=== PATIENT | female | born 1995 | race African-American/Black ===

== ENCOUNTER → 2023-05-02 | Emergency (ER) | payer OTHER ==
[2023-05-02 09:08] LABS: SARS-CoV-2 Antigen CONTROL BLUE LINE VIS/BG OK; SARS-CoV-2 Antigen Rapid Res Negative (Negative)
--- NOTE | 2023-05-02 10:27 | RAD REPORT ---
EXAM DESCRIPTION: Emmanuel Single View05/02/2023 9:17 am CLINICAL HISTORY: Cough COMPARISON: 2015 FINDINGS: The lungs appear clear of acute infiltrate. The heart is normal size IMPRESSION: No acute abnormalities displayed
--- NOTE | 2023-05-02 10:35 | ER ---
Nurse's Notes [facility] Name: Anna Brice Age: 28 yrs Sex: Female : 1995 Arrival Date: 05/02/2023 Time: 08:23 Bed 13 Private MD: Diagnosis: Acute upper respiratory infection, unspecified;Viral syndrome Presentation: 05/01 08:28 Chief complaint: Patient states: COUGH, CONGESTION, AND RUNNY NOSE FOR APPROXIMATELY 3 db DAYS. DENIES FEVER. STATES HAS DENTAL PAIN ON RIGHT TOOTH WITH RIGHT SIDE PAIN FOR A WHILE. Coronavirus screen: Client denies travel out of the [place] in the last 14 days. At this time, the client does not indicate any symptoms associated with coronavirus-19. Ebola Screen: Patient negative for fever greater than or equal to 101.5 degrees Fahrenheit, and additional compatible Ebola Virus Disease symptoms Patient denies exposure to infectious person. Patient denies travel to an Ebola-affected area in the 21 days before illness onset. No symptoms or risks identified at this time. Initial Sepsis Screen: Does the patient meet any 2 criteria? No. Patient's initial sepsis screen is negative. Does the patient have a suspected source of infection? No. Patient's initial sepsis screen is negative. Risk Assessment: Do you want to hurt yourself or someone else? Patient reports no desire to harm self or others. Onset of symptoms was April 30, 2023. 08:28 Method Of Arrival: Ambulatory db 08:28 Acuity: NATACHA 4 db Triage Assessment: 08:40 General: Appears in no apparent distress. comfortable, Behavior is calm, cooperative. db Pain: Complains of pain in face. Neuro: Level of Consciousness is awake, alert, obeys commands, Oriented to person, place, time, situation, Moves all extremities. Speech is normal. Cardiovascular: No deficits noted. Respiratory: Airway is patent Respiratory effort is even, unlabored, Respiratory pattern is regular, symmetrical, Breath sounds are clear bilaterally. GI: No deficits noted. No signs and/or symptoms were reported involving the gastrointestinal system. : No deficits noted. No signs and/or symptoms were reported regarding the genitourinary system. Derm: No deficits noted. No signs and/or symptoms reported regarding the dermatologic system. Musculoskeletal: No deficits noted. No signs and/or symptoms reported regarding the musculoskeletal system. Historical: - Allergies: 08:40 No Known Allergies; db - Home Meds: 08:40 None [Active]; db - PMHx: 08:40 Anemia; db - PSHx: 08:40 BILATERAL BREATST REDUCTION; db - Immunization history:: Adult Immunizations unknown. - Social history:: Smoking status: Patient denies any tobacco usage or history of. - Family history:: not pertinent. - Hospitalizations: : No recent hospitalization is reported. Screenin:42 [facility] ED Fall Risk Assessment (Adult) History of falling in the last 3 months, db including since admission No falls in past 3 months (0 pts) Confusion or Disorientation No (0 pts) Intoxicated or Sedated No (0 pts) Impaired Gait No (0 pts) Mobility Assist Device Used No (0 pt) Altered Elimination No (0 pt) Score/Fall Risk Level 0 - 2 = Low Risk Oriented to surroundings, Maintained a safe environment. Abuse screen: Denies threats or abuse. Denies injuries from another. Nutritional screening: No deficits noted. Tuberculosis screening: No symptoms or risk factors identified. Assessment: 08:42 Reassessment: SEE TRIAGE FOR INITIAL ASSESSMENT BY ME. db 08:48 Reassessment: Patient appears in no apparent distress at this time. Patient and/or db family updated on plan of care and expected duration. Pain level reassessed. Patient is alert, oriented x 3, equal unlabored respirations, skin warm/dry/pink. General: Appears in no apparent distress. comfortable, Behavior is calm, cooperative. EENT: Reports nasal congestion nasal discharge that is watery. 08:59 Reassessment: Patient appears in no apparent distress at this time. No changes from ko1 previously documented assessment. Patient and/or family updated on plan of care and expected duration. Pain level reassessed. Patient is alert, oriented x 3, equal unlabored respirations, skin warm/dry/pink. Vital Signs: 08:28 BP 139 / 89; Pulse 78; Resp 16; Temp 98.8(O); Pulse Ox 99% on R/A; Weight 116.57 kg; db Height 5 ft. 6 in. ; Pain 8/10; 08:59 BP 125 / 74; Pulse 75; Resp 15; Pulse Ox 99% on R/A; ko1 10:50 BP 110 / 55; Pulse 75; Resp 15; Pulse Ox 99% ; ko1 08:28 Body Mass Index 41.48 (116.57 kg, 167.64 cm) db 08:28 Pain Scale: Adult db Srinivas Coma Score: 08:48 Eye Response: spontaneous(4). Motor Response: obeys commands(6). Verbal Response: db oriented(5). Total: 15. ED Course: 08:27 Patient arrived in ED. rg4 08:28 Omar Stephenson MD is Attending Physician. rn 08:37 Zoë Tafoya, RN is Primary Nurse. db 08:40 Triage completed. db 08:40 Arm band placed on Patient placed in an exam room. EKG completed in triage. Results db shown to MD. 08:42 Patient has correct armband on for positive identification. Bed in low position. Call db light in reach. Side rails up X 1. Provided Education on: LABS AND XRAY. Pulse ox on. NIBP on. 08:48 Strep Sent. db 08:48 Flu Sent. db 08:48 SARS RAPID Sent. db 08:59 Primary Nurse role handed off by Zoë Tafoya RN ko1 08:59 Sandy Stephens, RN is Primary Nurse. ko1 08:59 No provider procedures requiring assistance completed. ko1 09:19 XRAY Chest (1 view) In Process Unspecified. EDMS 10:50 Patient did not have IV access during this emergency room visit. ko1 Administered Medications: No medications were administered Medication: 08:42 VIS not applicable for this client. db Outcome: 10:34 Discharge ordered by . rn 10:50 Discharged to home ambulatory, with family, ko1 10:50 Condition: stable 10:50 Discharge instructions given to patient, family, Instructed on discharge instructions, follow up and referral plans. Demonstrated understanding of instructions, follow-up care, 11:05 Patient left the ED. ko1 Signatures: Dispatcher [employer] EDMS Omar Stephenson MD MD rn Garcia, Rubi rg4 Sandy Stephens, RN RN ko1 Zoë Tafoya RN RN db Corrections: (The following items were deleted from the chart) 08:41 08:40 PSHx: None; db db
--- NOTE | 2023-05-02 10:35 | EDPHYS ---
Physician Documentation [facility] Name: Anna Brice Age: 28 yrs Sex: Female : 1995 Arrival Date: 05/02/2023 Time: 08:23 Bed 13 Private MD: ED Physician Omar Stephenson HPI: 05/01 08:50 This 28 yrs old Black Female presents to ER via Ambulatory with complaints of Flu rn Symptoms. 08:50 The patient or guardian reports cough, flu symptoms. Onset: The symptoms/episode rn began/occurred 2 day(s) ago. Severity of symptoms: At their worst the symptoms were mild, in the emergency department the symptoms are unchanged. Modifying factors: The symptoms are alleviated by nothing, the symptoms are aggravated by nothing. Associated signs and symptoms: Pertinent positives: fever, rhinorrhea, sore throat, Pertinent negatives: diarrhea. The patient has not experienced similar symptoms in the past. Patient reports feeling sick for the last 2 days. Reports subjective fever and chills, generalized malaise, cough and runny nose. Patient also reports posttussive emesis. No abdominal pain. No diarrhea. Significant other also with runny nose. Denies shortness of breath. No chronic medical problems. Reports chest pain but only with cough.. Historical: - Allergies: 08:40 No Known Allergies; db - Home Meds: 08:40 None [Active]; db - PMHx: 08:40 Anemia; db - PSHx: 08:40 BILATERAL BREATST REDUCTION; db - Immunization history:: Adult Immunizations unknown. - Social history:: Smoking status: Patient denies any tobacco usage or history of. - Family history:: not pertinent. - Hospitalizations: : No recent hospitalization is reported. ROS: 08:50 Constitutional: Negative for fever, chills, and weight loss, ENT: Positive for rn congestion and sore throat Neck: Negative for injury, pain, and swelling, Cardiovascular: Negative for chest pain, palpitations, and edema, Respiratory: Positive for cough Abdomen/GI: Negative for abdominal pain, diarrhea, and constipation, Back: Negative for injury and pain, : Negative for injury, bleeding, discharge, and swelling, MS/Extremity: Negative for injury and deformity, Skin: Negative for injury, rash, and discoloration, Neuro: Positive for headache and generalized malaise Exam: 08:52 Constitutional: This is a well developed, well nourished patient who is awake, alert, rn and in no acute distress. Ambulatory to room without difficulty or assistance Head/Face: Normocephalic, atraumatic. ENT: Pharynx with erythema, no swelling Neck: Trachea midline, no masses palpated, and no cervical lymphadenopathy. Supple, full range of motion without nuchal rigidity, or vertebral point tenderness. No Meningismus. Cardiovascular: Regular rate and rhythm. No pulse deficits. Respiratory: No increased work of breathing, no retractions or nasal flaring. Abdomen/GI: Soft, non-tender MS/ Extremity: Pulses equal, no cyanosis. Neuro: Awake and alert, GCS 15 Vital Signs: 08:28 BP 139 / 89; Pulse 78; Resp 16; Temp 98.8(O); Pulse Ox 99% on R/A; Weight 116.57 kg; db Height 5 ft. 6 in. ; Pain 8/10; 08:59 BP 125 / 74; Pulse 75; Resp 15; Pulse Ox 99% on R/A; ko1 10:50 BP 110 / 55; Pulse 75; Resp 15; Pulse Ox 99% ; ko1 08:28 Body Mass Index 41.48 (116.57 kg, 167.64 cm) db 08:28 Pain Scale: Adult db Srinivas Coma Score: 08:48 Eye Response: spontaneous(4). Motor Response: obeys commands(6). Verbal Response: db oriented(5). Total: 15. MDM: 08:28 Patient medically screened. rn 10:32 Differential Diagnosis: Bronchitis Influenza Upper Respiratory Infection Sinusitis rn Pharyngitis Viral Syndrome Pneumonia. Data reviewed: vital signs, nurses notes, lab test result(s), radiologic studies, plain films, and as a result, I will discharge patient. Counseling: I had a detailed discussion with the patient and/or guardian regarding the historical points, exam findings, and any diagnostic results supporting the discharge/admit diagnosis, lab results, radiology results, the need for outpatient follow up, to return to the emergency department if symptoms worsen or persist or if there are any questions or concerns that arise at home. Special discussion: I discussed with the patient/guardian in detail that at this point there is no indication for admission to the hospital. It is understood, however, that if the symptoms persist or worsen the patient needs to return immediately for re-evaluation. ED course: Patient with negative testing for COVID/flu/strep. Chest x-ray clear. No oxygen requirement. Most likely viral illness given constellation of symptoms and significant other also with symptoms. Had discussion with patient regarding antibiotics and viral infections, will discharge home with [id number] cold medication and return precautions.. 05/01 08:36 Order name: Strep rn 05/01 08:36 Order name: SARS RAPID; Complete Time: 10:23 rn 05/01 08:36 Order name: Flu; Complete Time: 10: rn 05/01 09:12 Order name: Throat Culture EDUT 05/01 08:36 Order name: XRAY Chest (1 view); Complete Time: 10:29 rn Administered Medications: No medications were administered Disposition Summary: 05/02/23 10:34 Discharge Ordered Notes: Location: Home rn Problem: new rn Symptoms: have improved rn Condition: Stable rn Diagnosis - Acute upper respiratory infection, unspecified rn - Viral syndrome rn Followup: rn - With: Private Physician - When: As needed - Reason: Recheck today's complaints, Re-evaluation by your physician Discharge Instructions: - Discharge Summary Sheet rn - Upper Respiratory Infection, Adult rn - Viral Respiratory Infection rn Forms: - Medication Reconciliation Form rn - Thank You Letter rn - Antibiotic airborne operations manager - Prescription Opioid Use rn - Patient Portal Instructions rn - Leadership Thank You Letter rn Signatures: Dispatcher [employer] Omar Valentino MD MD rn Benton, Danielle, RN RN db Corrections: (The following items were deleted from the chart) 08:41 08:40 PSHx: None; db db 08:51 08:50 Patient reports feeling sick for the last 2 days. Reports subjective fever and rn chills, generalized malaise, cough and runny nose. Patient also reports posttussive emesis. No abdominal pain. No diarrhea. Significant other also with runny nose. Denies shortness of breath. No chronic medical problems.. rn
[2023-05-02 11:32] VITALS: BP 110/55; TEMP 98.8; O2SAT 99
== END ==
LOC: ER 08:23
DX: J06.9 Acute upper respiratory infection, unspecified (principal); B34.9 Viral infection, unspecified; Z11.52 Encounter for screening for COVID-19
CPT/HCPCS: 36415; 71045; 87070; 87081; 87804; 87811; 99284

== ENCOUNTER 2023-05-26 11:08 | Emergency (ER) | payer OTHER ==
[2023-05-26] MEDS ORDERED: HYDROCODONE/APAP 10/325 TAB ONE (11:25)
--- NOTE | 2023-05-26 11:27 | ER ---
Nurse's Notes [facility] Name: Anna Brice Age: 28 yrs Sex: Female : 1995 Arrival Date: 05/26/2023 Time: 11:08 Bed IW2 Private MD: Diagnosis: Cellulitis of face Presentation: 05/25 11:16 Chief complaint: Patient states: Upper lip pain and swelling since last night. Had ll1 tooth pain, and used OTC medicine on the gums for pain last night. Coronavirus screen: Client denies travel out of the [place] in the last 14 days. At this time, the client does not indicate any symptoms associated with coronavirus-19. Ebola Screen: Patient denies travel to an Ebola-affected area in the 21 days before illness onset. Initial Sepsis Screen: Does the patient meet any 2 criteria? No. Patient's initial sepsis screen is negative. Does the patient have a suspected source of infection? No. Patient's initial sepsis screen is negative. Risk Assessment: Do you want to hurt yourself or someone else? Patient reports no desire to harm self or others. Onset of symptoms was May 25, 2023. 11:16 Method Of Arrival: Ambulatory ll1 11:16 Acuity: NATACHA 4 ll1 Triage Assessment: 11:20 General: Appears uncomfortable, Behavior is calm, cooperative, appropriate for age. ll1 Pain: Complains of pain in upper mouth. EENT: Reports pain in front tooth swelling upper lip. 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 - Infectious Disease History:: Denies. - Social history:: Smoking status: Reported history of juuling and/or vaping. Patient denies any tobacco usage or history of. - Family history:: not pertinent. - Hospitalizations: : No recent hospitalization is reported. Screenin:[address] [facility] ED Fall Risk Assessment (Adult) History of falling in the last 3 months, ll1 including since admission No falls in past 3 months (0 pts) Confusion or Disorientation No (0 pts) Intoxicated or Sedated No (0 pts) Impaired Gait No (0 pts) Mobility Assist Device Used No (0 pt) Altered Elimination No (0 pt) Score/Fall Risk Level 0 - 2 = Low Risk Maintained a safe environment, Hourly rounding (assess needs \T\ fall precautionary measures) done. Abuse screen: Denies threats or abuse. Nutritional screening: No deficits noted. Tuberculosis screening: No symptoms or risk factors identified. Assessment: 11:31 Reassessment: No changes from previously documented assessment. Patient and/or family ll1 updated on plan of care and expected duration. Pain level reassessed. Patient is alert, oriented x 3, equal unlabored respirations, skin warm/dry/pink. Vital Signs: 11:16 BP 135 / 93; Pulse 103; Resp 17; Temp 97.5; Pulse Ox 98% ; Weight 115.67 kg; Height 5 ll1 ft. 6 in. ; Pain 10/10; 11:16 Body Mass Index 41.16 (115.67 kg, 167.64 cm) 1 11:16 Pain Scale: Adult [facility] ED Course: 11:10 Patient arrived in ED. mr 11:12 Omar Stephenson MD is Attending Physician. rn 11:14 Arm band placed on. 1 11:20 Triage completed. 1 11:31 Patient has correct armband on for positive identification. Call light in reach. ll1 Provided Education on: No drinking alcohol or driving on prescribed pain medications. . 11:31 No provider procedures requiring assistance completed. Patient did not have IV access ll1 during this emergency room visit. Administered Medications: 11:30 Drug: Clindamycin PO 300 mg PO once Route: PO; 1 11:31 Follow up: Response: No adverse reaction 1 11:30 Drug: [place] PO 10 mg-325 mg 1 tabs PO once Route: PO; ll1 11:31 Follow up: Response: No adverse reaction 1 Medication: 11:31 VIS not applicable for this client. ll1 Outcome: 11: Discharge ordered by . rn 11:31 Patient left the ED. ll1 11:31 Discharged to home ambulatory, ll1 11:31 Condition: stable 11:31 Discharge instructions given to patient, family, Instructed on discharge instructions, follow up and referral plans. no driving heavy equipment, medication usage, Demonstrated understanding of instructions, follow-up care, medications, Prescriptions given X 2, Signatures: Cote, Sharla, Reg Reg mr Omar Stephenson MD MD rn Mike Mendez RN RN ll1 Corrections: (The following items were deleted from the chart) 11:20 11:16 Social history: Smoking status: Patient denies any tobacco usage or history of. ll1 ll1 11:21 11:16 Pulse 107bpm; Resp 17bpm; Pulse Ox 98%; 115.67 kg; Height 5 ft. 6 in.; BMI: 41.1; ll1 Pain 11/19, Adult; ll1
--- NOTE | 2023-05-26 11:27 | EDPHYS ---
Physician Documentation [facility] Name: Anna Brice Age: 28 yrs Sex: Female : 1995 Arrival Date: 05/26/2023 Time: 11:08 Bed IW2 Private MD: ED Physician Omar Stephenson HPI: 05/25 11:21 This 28 yrs old Black Female presents to ER via Ambulatory with complaints of Lips rn Swelling. 11:21 The patient presents with pain, swelling. Onset: The symptoms/episode began/occurred rn yesterday. Modifying factors: The symptoms are alleviated by nothing, the symptoms are aggravated by nothing. Severity of symptoms: At their worst the symptoms were mild, in the emergency department the symptoms are unchanged. The patient has not experienced similar symptoms in the past. Patient reports dental pain and upper lip swelling and pain. NO fever. NO trauma. No new meds. No previous allergic reaction. . 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 - Infectious Disease History:: Denies. - Social history:: Smoking status: Reported history of juuling and/or vaping. Patient denies any tobacco usage or history of. - Family history:: not pertinent. - Hospitalizations: : No recent hospitalization is reported. ROS: 11:21 Constitutional: Negative for fever, chills, and weight loss, ENT: Positive for upper rn lip injury and pain Cardiovascular: Negative for chest pain, palpitations, and edema, Respiratory: Negative for shortness of breath, cough, wheezing, and pleuritic chest pain, Abdomen/GI: Negative for abdominal pain, nausea, vomiting, diarrhea, and constipation, Skin: Negative for injury, rash, and discoloration, Neuro: Negative for headache, weakness, numbness, tingling, and seizure, Exam: 11:21 Constitutional: This is a well developed, well nourished patient who is awake, alert, rn and in no acute distress. Eyes: Periorbital areas with no swelling, redness, or edema. ENT: Poor dentition. Gingival swelling above upper front 2 teeth. No definitive abscess but upper lip with induration. No abscess or fluctuance. No open wounds or drainage. Respiratory: Speaking full sentences, unlabored. Skin: No urticaria or signs of allergic reaction Vital Signs: 11:16 BP 135 / 93; Pulse 103; Resp 17; Temp 97.5; Pulse Ox 98% ; Weight 115.67 kg; Height 5 ll1 ft. 6 in. ; Pain 10/10; 11:16 Body Mass Index 41.16 (115.67 kg, 167.64 cm) ll1 11:16 Pain Scale: Adult ll1 MDM: 11:13 Patient medically screened. rn 11:21 Differential diagnosis: dental caries, dental abscess. Data reviewed: vital signs, rn nurses notes, and as a result, I will discharge patient. Counseling: I had a detailed discussion with the patient and/or guardian regarding the historical points, exam findings, and any diagnostic results supporting the discharge/admit diagnosis, the need for outpatient follow up, to return to the emergency department if symptoms worsen or persist or if there are any questions or concerns that arise at home. Special discussion: I discussed with the patient/guardian in detail that at this point there is no indication for admission to the hospital. It is understood, however, that if the symptoms persist or worsen the patient needs to return immediately for re-evaluation. Based on the history and exam findings, there is no indication for further emergent testing or inpatient evaluation. I discussed with the patient/guardian the need to see a dentist for further evaluation of the symptoms. 11:21 ED course: Most likely early infection but has originated from the tooth. Is likely rn extended to soft tissue. Will place on antibiotics and pain medication. 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 Administered Medications: 11:30 Drug: Clindamycin PO 300 mg PO once Route: PO; ll1 11:31 Follow up: Response: No adverse reaction ll1 11:30 Drug: [place] PO 10 mg-325 mg 1 tabs PO once Route: PO; ll1 11:31 Follow up: Response: No adverse reaction ll1 Disposition Summary: 05/26/23 11:26 Discharge Ordered Notes: Location: Home rn Problem: new rn Symptoms: are unchanged rn Condition: Stable rn Diagnosis - Cellulitis of face rn Followup: rn - With: Private Physician - When: As needed - Reason: Recheck today's complaints, Re-evaluation by your physician Discharge Instructions: - Cellulitis, Adult rn - Discharge Summary Sheet 1 Forms: - Medication Reconciliation Form rn - Thank You Letter rn - Antibiotic t rail turner - Prescription Opioid Use rn - Patient Portal Instructions rn - Leadership Thank You Letter rn - Work release form ll1 Prescriptions: - Clindamycin HCl 300 mg Oral Capsule - take 1 capsule ORAL route every 6 hours for 10 days; 40 capsule; Refills: 0, rn Product Selection Permitted - Tramadol 50 mg Oral Tablet - take 1 tablet ORAL route every 8 hours as needed; 12 tablet; Refills: 0, rn Product Selection Permitted Signatures: Omar Stephenson MD MD rn Lewis, Lynsay, RN RN 1 Corrections: (The following items were deleted from the chart) 11:20 11:16 Social history: Smoking status: Patient denies any tobacco usage or history of. ll1 ll1
[2023-05-26 11:57] VITALS: BP 135/93; TEMP 97.5; O2SAT 98
== END 2023-05-26 11:31 | disposition home or self-care (01) ==
LOC: ER 11:08
DX: L03.211 Cellulitis of face (principal)
CPT/HCPCS: 99283

== ENCOUNTER 2023-06-12 08:58 | Emergency (ER) | payer OTHER ==
--- NOTE | 2023-06-12 10:25 | EDPHYS ---
Physician Documentation [facility] Name: Anna Brice Age: 28 yrs Sex: Female : 1995 Arrival Date: 06/12/2023 Time: 08:58 Bed 19 Private MD: ED Physician Luz Gross HPI: 06/11 09:12 This 28 yrs old Black Female presents to ER via Unassigned with complaints of Flu sd2 Symptoms. 09:12 28-year-old female presents with chief complaint of flulike symptoms. She reports she sd2 started 3 days ago with cough, congestion and sore throat. She denies any associated fevers, vomiting or diarrhea. She reports she was exposed to her grandmother who tested positive for COVID 2 days ago.. Historical: - Allergies: 09:28 No Known Allergies; aa5 - PMHx: 09:28 Anemia; aa5 - PSHx: 09:28 BILATERAL BREATST REDUCTION; aa5 - Immunization history:: Client reports receiving the 2nd dose of the Covid vaccine. - Infectious Disease History:: Denies. - Social history:: Smoking status: Reported history of juuling and/or vaping. ROS: 09:12 Constitutional: Negative for fever, chills, and weight loss, Eyes: Negative for injury, sd2 pain, redness, and discharge, ENT: Negative for injury, and discharge, positive for sore throat Cardiovascular: Negative for chest pain, palpitations, and edema, Respiratory: Negative for shortness of breath, cough, wheezing. Abdomen/GI: Negative for abdominal pain, nausea, vomiting, diarrhea. MS/Extremity: Negative for injury and deformity, Skin: Negative for injury, rash, and discoloration, Neuro: Negative for headache, numbness and tingling. Exam: 09:12 Constitutional: This is a well developed, well nourished patient who is awake, alert, sd2 and in no acute distress. Head/Face: Normocephalic, atraumatic. Eyes: EOMI, normal conjunctiva bilaterally ENT: Nares patent. No nasal discharge, no septal abnormalities noted. Oropharynx with no redness, swelling, or masses, exudates, or evidence of obstruction, uvula midline. Mucous membranes moist. Chest/axilla: Normal chest wall appearance and motion. Nontender with no deformity. Cardiovascular: Regular rate and rhythm with a normal S1 and S2. No gallops, murmurs, or rubs. 2+ distal pulses. Respiratory: Lungs have equal breath sounds bilaterally, clear to auscultation and percussion. No rales, rhonchi or wheezes noted. No increased work of breathing, no retractions or nasal flaring. Abdomen/GI: Soft, non-tender, with normal bowel sounds. No guarding or rebound. No evidence of tenderness throughout. Skin: Warm, dry with normal turgor. Normal color with no rashes, no lesions, and no evidence of cellulitis. MS/ Extremity: Pulses equal, no cyanosis. Neurovascular intact. Full, normal range of motion. Psych: Awake, alert, with orientation to person, place and time. Behavior, mood, and affect are within normal limits. Vital Signs: 09:15 BP 119 / 83; Pulse 88; Resp 17; Temp 98.5(O); Pulse Ox 100% ; Weight 113.4 kg; Height 5 nj1 ft. 6 in. ; 10:31 BP 124 / 80; Pulse 80; Resp 17; Temp 96.8(TE); Pulse Ox 100% on R/A; nj1 09:15 Body Mass Index 40.35 (113.40 kg, 167.64 cm) [facility] MDM: 09:01 Patient medically screened. rn 09:12 Differential Diagnosis Differential diagnosis includes but is not limited to: Viral sd2 URI, acute otitis media, acute otitis externa, pneumonia, UTI, COVID, flu, herpangina among others. Data reviewed: vital signs, nurses notes. Historians other than the Patient: Spouse/Significant Other: at bedside. Counseling: I had a detailed discussion with the patient and/or guardian regarding the historical points, exam findings, and any diagnostic results supporting the discharge/admit diagnosis, lab results, the need for outpatient follow up, to return to the emergency department if symptoms worsen or persist or if there are any questions or concerns that arise at home. 10:22 ED course: Labs reviewed. Viral testing negative. Pt advised of all results and sd2 continued supportive care as well as need for outpatient follow up. Pt verbalizes understanding of discharge plan and strict return precautions. . 06/11 09:11 Order name: COVID-19 SARS RT PCR; Complete Time: 10:22 sd2 06/11 09:11 Order name: Flu; Complete Time: 10:22 sd2 Administered Medications: No medications were administered Disposition Summary: 06/12/23 10:24 Discharge Ordered Problem: new sd2 Symptoms: are unchanged sd2 Condition: Stable sd2 Diagnosis - Acute upper respiratory infection, unspecified sd2 - Contact with and (suspected) exposure to other communicable diseases sd2 Followup: sd2 - With: Private Physician - When: 2 - 3 days - Reason: Recheck today's complaints, Continuance of care, Re-evaluation by your physician Discharge Instructions: - Discharge Summary Sheet sd2 - Upper Respiratory Infection, Adult sd2 - Viral Respiratory Infection sd2 Forms: - Medication Reconciliation Form sd2 - Antibiotic Education sd2 - Prescription Opioid Use sd2 - Patient Portal Instructions sd2 - Leadership Thank You Letter sd2 Signatures: Dispatcher [employer] EDME Omar Stephenson MD MD rn Calderon, Audri RN RN aa5 Luz Gross MD MD sd2 Liv Mills RN RN nj1 Corrections: (The following items were deleted from the chart) 09:11 09:11 SARS-COV-2 RT PCR+[id number].[email or web address].[email or web address] ordered. EDME EDMS 09:11 09:11 Influenza Screen (A \T\ B)+BA.LAB.BRZ ordered. [facility] EDMS 09:34 09:28 Immunization history: Client reports receiving the 2nd dose of the Covid vaccine, [place] [id number] :34 09:28 Infectious Disease History: Denies. [facility]34 09:28 Social history: Smoking status: Reported history of juuling and/or vaping. 5 [facility]
--- NOTE | 2023-06-12 10:25 | ER ---
Nurse's Notes [facility] Name: Anna Brice Age: 28 yrs Sex: Female : 1995 Arrival Date: 06/12/2023 Time: 08:58 Bed 19 Private MD: Diagnosis: Acute upper respiratory infection, unspecified;Contact with and (suspected) exposure to other communicable diseases Presentation: 06/11 09:15 Chief complaint: Patient states: Fatigued, cough, sore throat and runny nose for the [facility] past 3 days. Coronavirus screen: Vaccine status: Patient reports receiving the 2nd dose of the covid vaccine. Ebola Screen: Patient denies travel to an Ebola-affected area in the 21 days before illness onset. Initial Sepsis Screen: Does the patient meet any 2 criteria? No. Patient's initial sepsis screen is negative. Does the patient have a suspected source of infection? No. Patient's initial sepsis screen is negative. Risk Assessment: Do you want to hurt yourself or someone else? Patient reports no desire to harm self or others. Onset of symptoms was June 04, 2023. 09:15 Method Of Arrival: Ambulatory [facility] 09:15 Acuity: NATACHA 4 [facility] Triage Assessment: 09:15 Pain: Denies pain. [facility] Historical: - Allergies: 09:28 No Known Allergies; aa5 - PMHx: 09:28 Anemia; aa5 - PSHx: 09:28 BILATERAL BREATST REDUCTION; aa5 - Immunization history:: Client reports receiving the 2nd dose of the Covid vaccine. - Infectious Disease History:: Denies. - Social history:: Smoking status: Reported history of juuling and/or vaping. Screenin:31 [facility] ED Fall Risk Assessment (Adult) History of falling in the last 3 months, aa5 including since admission No falls in past 3 months (0 pts) Confusion or Disorientation No (0 pts) Intoxicated or Sedated No (0 pts) Impaired Gait No (0 pts) Mobility Assist Device Used No (0 pt) Altered Elimination No (0 pt) Score/Fall Risk Level 0 - 2 = Low Risk Oriented to surroundings, Maintained a safe environment, Hourly rounding (assess needs \T\ fall precautionary measures) done. Abuse screen: Denies threats or abuse. Denies injuries from another. Nutritional screening: No deficits noted. Tuberculosis screening: No symptoms or risk factors identified. Assessment: 09:15 General: Appears in no apparent distress. comfortable, Behavior is calm, cooperative, nj1 appropriate for age. Neuro: Level of Consciousness is awake, alert, obeys commands, Oriented to person, place, time, situation. Neuro: Reports Fatigue. Cardiovascular: Patient's skin is warm and dry. Respiratory: Airway is patent Respiratory effort is even, unlabored. Respiratory: Reports cough that is. EENT: Reports nasal discharge that is watery. 10:31 Reassessment: Patient appears in no apparent distress at this time. Patient is alert, nj1 oriented x 3, equal unlabored respirations, skin warm/dry/pink. Vital Signs: 09:15 BP 119 / 83; Pulse 88; Resp 17; Temp 98.5(O); Pulse Ox 100% ; Weight 113.4 kg; Height 5 nj1 ft. 6 in. ; 10:31 BP 124 / 80; Pulse 80; Resp 17; Temp 96.8(TE); Pulse Ox 100% on R/A; nj1 09:15 Body Mass Index 40.35 (113.40 kg, 167.64 cm) [facility] ED Course: 09:00 Patient arrived in ED. im 09:01 Omar Stephenson MD is Attending Physician. rn 09:04 Attending Physician role handed off by Omar Stephenson MD sd2 09:04 Luz Gross MD is Attending Physician. sd2 09:15 Danica Kenyon, RENETTA is Primary Nurse. nj1 09:15 Arm band placed on. Patient has correct armband on for positive identification. Bed in [facility] low position. Call light in reach. Adult w/ patient. Provided Education on: call light, fall precautions. 09:28 Triage completed. aa5 09:35 Primary Nurse role handed off by Danica Kenyon, RENETTA nj1 09:35 Liv Mills, RENETTA is Primary Nurse. nj1 10:31 No provider procedures requiring assistance completed. Patient did not have IV access nj1 during this emergency room visit. Administered Medications: No medications were administered Medication: 09:15 VIS not applicable for this client. nj1 Outcome: 10:24 Discharge ordered by MD. sd2 10:32 Discharged to home ambulatory, nj1 10:32 Condition: stable 10:32 Discharge instructions given to patient, Instructed on discharge instructions, follow up and referral plans. Demonstrated understanding of instructions, follow-up care, 10:37 Patient left the ED. [facility] Signatures: Omar Stephenson MD MD rn Calderon, Audri, RN RN [facility] Luz Gross MD MD sd2 Liv Mills RN RN [facility] Kaci Mcrae Corrections: (The following items were deleted from the chart) 09:15 Chief complaint: Patient states: Fatigued, cough, sore throat and runny nose for [facility] the past 3 days. [facility] 09:15 Coronavirus screen: Vaccine status: Patient reports receiving the 2nd dose of the [facility] covid vaccine. [facility] 09:15 Ebola Screen: Patient denies travel to an Ebola-affected area in the 21 days [facility] before illness onset. [facility] 09:15 Initial Sepsis Screen: Does the patient meet any 2 criteria? No. Patient's [facility] initial sepsis screen is negative. Does the patient have a suspected source of infection? No. Patient's initial sepsis screen is negative. [facility] 09:15 Risk Assessment: Do you want to hurt yourself or someone else? Patient reports no [facility] desire to harm self or others. [facility] 09:15 Onset of symptoms was June 04, 2023 [place] [address] 09:15 Method Of Arrival: Ambulatory [place] [address] 09:15 BP 119 / 83; Pulse 88bpm; Resp 17bpm; Pulse Ox 100%; Temp 98.5F Oral; 113.4 kg; [facility] Height 5 ft. 6 in.; BMI: 40.3; [facility] 09:15 Acuity: NATACHA 4 [place] [address] 09:28 Immunization history: Client reports receiving the 2nd dose of the Covid vaccine, [place] [id number] 09:28 Infectious Disease History: Denies. [place] [address] 09:28 Social history: Smoking status: Reported history of juuling and/or vaping. [place] [address] 09:28 Arm band placed on [place] [address] 09:31 Patient has correct armband on for positive identification. Bed in low position. [facility] Call light in reach. Adult w/ patient. [facility] 09:31 Provided Education on: call light, fall precautions. [place] [address] 09:15 General: Appears in no apparent distress. comfortable, Behavior is calm, [facility] cooperative, appropriate for age, [facility] 09:15 Neuro: Level of Consciousness is awake, alert, obeys commands, Oriented to [facility] person, place, time, situation, [facility] 09:15 Cardiovascular: Patient's skin is warm and dry. [place] [address] 09:15 Respiratory: Airway is patent Respiratory effort is even, unlabored, [place] [address] 09:15 EENT: Reports nasal discharge that is watery [place] [address] 09:15 Respiratory: Reports cough that is [place] [address] 09:15 Neuro: Reports Fatigue. [place] [address] 09:31 VIS not applicable for this client. [place] [address] 35 09:05 Danica Kenyon, RN is Primary Nurse. [place] [address] 10:37 10:31 BP 124 / 80; Pulse 80bpm; Resp 17bpm; Pulse Ox 100% RA; [place] [id number]
[2023-06-12 10:58] VITALS: BP 124/80; TEMP 96.8; O2SAT 100
== END 2023-06-12 10:37 | disposition home or self-care (01) ==
LOC: ER 08:58
DX: J06.9 Acute upper respiratory infection, unspecified (principal); Z20.89 Contact with and (suspected) exposure to other communicable diseases; Z11.52 Encounter for screening for COVID-19
CPT/HCPCS: 87635; 87804; 99283

== ENCOUNTER 2024-01-28 08:00 | Emergency (ER) | payer SELFPAY ==
[2024-01-28 08:52] LABS: SARS-CoV-2 Antigen CONTROL BLUE LINE VIS/BG OK; SARS-CoV-2 Antigen Rapid Res Negative (Negative)
--- NOTE | 2024-01-28 10:13 | ER ---
Nurse's Notes [facility] Name: Anna Brice Age: 28 yrs Sex: Female : 1995 Arrival Date: 01/28/2024 Time: 08:00 Bed 12 Private MD: Diagnosis: Acute pharyngitis, unspecified Presentation: 01/27 08:29 Chief complaint: Patient states: sore throat, swollen tonsils since Friday. iw Coronavirus screen: Client presents with at least one sign or symptom that may indicate coronavirus-19. Ebola Screen: No symptoms or risks identified at this time. Initial Sepsis Screen: Does the patient meet any 2 criteria? No. Patient's initial sepsis screen is negative. Does the patient have a suspected source of infection? No. Patient's initial sepsis screen is negative. Risk Assessment: Do you want to hurt yourself or someone else? Patient reports no desire to harm self or others. Onset of symptoms was January 25, 2024. 08:29 Method Of Arrival: Ambulatory iw 08:29 Acuity: NATACHA 4 iw Historical: - Allergies: 08:30 No Known Allergies; iw - PMHx: 08:30 Anemia; iw - PSHx: 08:30 breast reduction-christian; iw - Family history:: not pertinent. - Hospitalizations: : No recent hospitalization is reported. Vital Signs: 08:29 BP 116 / 70; Pulse 97; Resp 16; Temp 98; Pulse Ox 100% on R/A; Pain 6/10; iw 08:29 Pain Scale: Adult iw ED Course: 08:03 Patient arrived in ED. im 08:04 Omar Stephenson MD is Attending Physician. rn 08:29 Natacha Malave RN is Primary Nurse. iw 08:30 Triage completed. iw 08:30 Arm band placed on. iw Administered Medications: No medications were administered Outcome: 10:12 Discharge ordered by . rn 10:36 Patient left the ED. iw Signatures: Natacha Malave RN RN Omar Stephenson MD MD rn Mendoza, Itzel im Corrections: (The following items were deleted from the chart) 08:30 08:30 PSHx: BILATERAL BREATST REDUCTION; iw iw
--- NOTE | 2024-01-28 10:13 | EDPHYS ---
Physician Documentation [facility] Name: Anna Brice Age: 28 yrs Sex: Female : 1995 Arrival Date: 01/28/2024 Time: 08:00 Bed 12 Private MD: ED Physician Omar Stephenson HPI: 01/27 09:09 This 28 yrs old Black Female presents to ER via Ambulatory with complaints of Sore rn Throat, Flu Symptoms. 09:09 The patient presents with sore throat. The patient describes throat pain as raw. rn Severity of symptoms: At their worst the symptoms were mild, in the emergency department the symptoms are unchanged. Associated signs and symptoms: Pertinent positives: cough, rhinorrhea. The patient has experienced similar episodes in the past. The patient has not recently seen a physician. 09:09 Reports multiple family members sick in the last few weeks. Denies shortness of breath..rn Historical: - Allergies: 08:30 No Known Allergies; iw - PMHx: 08:30 Anemia; iw - PSHx: 08:30 breast reduction-christian; iw - Family history:: not pertinent. - Hospitalizations: : No recent hospitalization is reported. 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 ENT: Mild pharyngeal erythema with right tonsillar swelling, no exudate, no evidence of peritonsillar abscess. Uvula midline. Cardiovascular: Regular rate and rhythm. No pulse deficits. Respiratory: No increased work of breathing, no retractions or nasal flaring. Vital Signs: 08:29 BP 116 / 70; Pulse 97; Resp 16; Temp 98; Pulse Ox 100% on R/A; Pain 6/10; iw 08:29 Pain Scale: Adult iw MDM: 08:04 Medical Screening Exam initiated rn 10:12 Differential diagnosis: pharyngitis, tonsillitis, viral syndrome. Data reviewed: vital rn signs, nurses notes, lab test result(s), and as a result, I will discharge patient. Counseling: I had a detailed discussion with the patient and/or guardian regarding the historical points, exam findings, and any diagnostic results supporting the discharge/admit diagnosis, lab results, the need for outpatient follow up, to return to the emergency department if symptoms worsen or persist or if there are any questions or concerns that arise at home. Special discussion: I discussed with the patient/guardian in detail that at this point there is no indication for admission to the hospital. It is understood, however, that if the symptoms persist or worsen the patient needs to return immediately for re-evaluation. 01/27 08:04 Order name: Flu; Complete Time: 10:10 rn 01/27 08:04 Order name: Strep rn 01/27 08:04 Order name: SARS-COV-2 Antigen Rapid; Complete Time: 10:10 rn 01/27 08:56 Order name: Throat Culture EDMS Administered Medications: No medications were administered Disposition Summary: 01/28/24 10:12 Discharge Ordered Notes: Location: Home rn Problem: new rn Symptoms: have improved rn Condition: Stable rn Diagnosis - Acute pharyngitis, unspecified rn Followup: rn - With: Private Physician - When: As needed - Reason: Recheck today's complaints, Re-evaluation by your physician Discharge Instructions: - Discharge Summary Sheet rn - Pharyngitis rn Forms: - Work release form iw - Medication Reconciliation Form rn - Antibiotic representative government relations - Prescription Opioid Use rn - Patient Portal Instructions rn - Leadership Thank You Letter rn Prescriptions: - Zithromax Z-Simone 250 mg Oral Tablet - take 1 tablet ORAL route as directed for 5 days Day 1 - take two (2) tablets rn one time. Day 2, 3, 4 , 5 take one (1) tablet once daily.; 6 tablet; Refills: 0, Product Selection Permitted Signatures: Dispatcher [employer] Natacha Suárez RN RN iw Omar Stephenson MD MD rn clinical resource: (The following items were deleted from the chart) 08:30 08:30 PSHx: BILATERAL BREATST REDUCTION; iw iw
[2024-01-28 10:57] VITALS: BP 116/70; TEMP 98; O2SAT 100
== END 2024-01-28 10:36 | disposition home or self-care (01) ==
LOC: ER 08:00
DX: J02.9 Acute pharyngitis, unspecified (principal); D64.9 Anemia, unspecified; Z11.52 Encounter for screening for COVID-19
CPT/HCPCS: 36415; 87070; 87081; 87804; 87811; 99281